=== PATIENT | female | born 1990 | race Caucasian/White ===

== ENCOUNTER 2016-10-25 12:23 | Emergency (ER) | payer BC ==
[2016-10-25] MEDS ORDERED: NS 1,000 ML IV ONE (12:44)
--- NOTE | 2016-10-25 12:48 | EDPHY ---
H & P Stated Complaint: Abdominal pain, diarrhea, nausea Source: Patient Exam Limitations: No limitations - Personal History LMP (Females 10-55): 15-21 Days Ago Current Tetanus/Diphtheria Vaccine: Unsure Current Tetanus Diphtheria and Acellular Pertussis (TDAP): Unsure - Medical/Surgical History Hx Asthma: Yes Hx Chronic Respiratory Disease: No Hx Diabetes: No Hx Cardiac Disease: No Hx Renal Disease: No Hx Cirrhosis: No Hx Alcoholism: No Hx HIV/AIDS: No Hx Splenectomy or Spleen Trauma: No Other PMH: asthma, allergic rx - Social History Smoking Status: Never smoked Time Seen by Provider: 10/25/16 12:35 HPI/ROS: CHIEF COMPLAINT: Abdominal pain, nausea, loose stool HISTORY OF PRESENT ILLNESS: The patient has a history of endometriosis status post laparoscopic surgery x2. She has been on a medically supervised weight loss program including injectable HCG shots this week. She presents to the ED today after she has developed lower abdominal cramping for the past 3 days. She denies fever or vomiting. She does report an episode of loose stool over the past 2 days. The patient denies vaginal discharge or bleeding. The patient reports his symptoms are moderate in nature. REVIEW OF SYSTEMS: A comprehensive 10 point review of systems is otherwise negative aside from elements mentioned in the history of present illness. (Sadi Taylor) - Physical Exam Exam: General Appearance: Alert, no distress Eyes: Pupils equal and round no pallor or injection ENT, Mouth: Mucous membranes moist Respiratory: There are no retractions, lungs are clear to auscultation Cardiovascular: Regular rate and rhythm Gastrointestinal: Minimal tenderness to palpation noted in the right lower quadrant, right mid and left lower quadrant Neurological: A&O, normal motor function, normal sensory exam, normal cranial nerves Skin: Warm and dry, no rashes Musculoskeletal: Neck is supple nontender Extremities: symmetrical, full range of motion (Sadi Taylor) Constitutional: Initial Vital Signs Temperature (C) 36.8 C 10/25/16 12:27 Heart Rate 60 10/25/16 12:27 Respiratory Rate 18 10/25/16 12:27 Blood Pressure 122/67 H 10/25/16 12:27 O2 Sat (%) 97 10/25/16 12:27 O2 Delivery Mode Room Air Allergies/Adverse Reactions: sulfamethoxazole [From ] Allergy (Verified 10/25/16 12:30) trimethoprim [From Septra] Allergy (Verified 10/25/16 12:30) Home Medications: Medication Instructions Recorded Pamprin Multi-Symptom Tab 10/25/16 Medical Decision Making - Diagnostics Imaging Results: Imaging Impressions Abdomen Ultrasound 10/25/16 12:44 Impression: Trace of free fluid in the right lower quadrant, otherwise, there are no secondary findings to support a clinical diagnosis of acute appendicitis. Results called and discussed with Jonatan Lozano M.D. on 10/25/2016 at 14:32 Pelvic/Renal Ultrasound 10/25/16 12:44 Impression: 1. No evidence for ovarian torsion. 2. Hypoechoic avascular structure in the left ovary could represent a hemorrhagic cyst or possibly an endometrioma. 3. Moderate amount of free fluid is seen throughout the pelvis. Results called and discussed with Jonatan Lozano M.D. on October 25, 2016 at 1432 hours. US free fluid in pelvis, no torsion, no fibroid; Reza at 1434. Appendix not visualized but no secondary signs of appendicitis. (Jonatan Lozano) ED Course/Re-evaluation: The patient's test is positive as expected secondary to her current HCG therapy for weight loss. The patient tells me she did have 2 negative home tests prior to starting this therapy. The patient was reexamined by myself at 2:00 p.m.. She is in no acute distress and she remains with a benign abdominal examination. Plan will be for pelvic US to evaluate for torsion. Patient plans to stop HCG therapy and will repeat test later in the week. We discussed the very unlikely possibility of ectopic and the need to verify the test becomes negative after stopping HCG. The patient will be turned over to Dr. Lozano pending US. If no acute CLINICAL REVIEW SPECIALIST issue identified, DC home with plan for NSAID's, stop HCG treatment and recheck test this week. Return precautions given to patient. (Sadi Taylor) Differential Diagnosis: Differential diagnosis considered includes ovarian cyst, appendicitis, urinary tract infection, endometriosis (Sadi Taylor) Other Provider: Care assumed from Claudia at 1400. Results discussed with the patient at 1435; discussed high-dose oral nonsteroidals, she will stop her HCG shots. Although her test is positive it is likely this is due to her injections, see Dr. Taylor note for details. Per Dr. Taylor plan to discharge the patient if ultrasound does not show high likelihood of acute surgical problem. Ectopic considered but thought to be unlikely. Will return if pain gets worse or she develops dizziness or fainting. (Jonatan Lozano) - Data Points Laboratory Results: Laboratory Results 10/25/16 12:55 10/25/16 12:55 10/25/16 10/25/16 10/25/16 12:55 12:55 12:55 WBC 9.75 10^3/uL H 10^3/uL (3.80-9.50) RBC 4.84 10^6/uL 10^6/uL (4.18-5.33) Hgb 14.8 g/dL g/dL (12.6-16.3) Hct 44.8 % % (38.0-47.0) MCV 92.6 fL fL (81.5-99.8) MCH 30.6 pg pg (27.9-34.1) MCHC 33.0 g/dL g/dL (32.4-36.7) RDW 11.7 % % (11.5-15.2) Plt Count 367 10^3/uL 10^3/uL (150-400) MPV 10.1 fL fL (8.7-11.7) Neut % (Auto) 68.3 % % (39.3-74.2) Lymph % (Auto) 19.0 % % (15.0-45.0) Bureau % (Auto) 8.4 % % (4.5-13.0) Eos % (Auto) 3.2 % % (0.6-7.6) Baso % (Auto) 0.7 % % (0.3-1.7) Nucleat RBC Rel Count 0.0 % % (0.0-0.2) Absolute Neuts (auto) 6.66 10^3/uL H 10^3/uL (1.70-6.50) Absolute Lymphs (auto) 1.85 10^3/uL 10^3/uL (1.00-3.00) Absolute Monos (auto) 0.82 10^3/uL H 10^3/uL (0.30-0.80) Absolute Eos (auto) 0.31 10^3/uL 10^3/uL (0.03-0.40) Absolute Basos (auto) 0.07 10^3/uL 10^3/uL (0.02-0.10) Absolute Nucleated RBC 0.00 10^3/uL 10^3/uL (0-0.01) Immature Gran % 0.4 % % (0.0-1.1) Immature Gran # 0.04 10^3/uL 10^3/uL (0.00-0.10) Sodium 140 mEq/L mEq/L (134-144) Potassium 4.2 mEq/L mEq/L (3.5-5.2) Chloride 108 mEq/L mEq/L (97-110) Carbon Dioxide 20 mEq/l L mEq/l (22-31) Anion Gap 12 mEq/L mEq/L (8-16) BUN 19 mg/dL mg/dL (7-23) Creatinine 0.8 mg/dL mg/dL (0.6-1.0) Estimated GFR > 60 Glucose 92 mg/dL mg/dL (70-100) Calcium 9.4 mg/dL mg/dL (8.5-10.4) Beta HCG, Qual POSITIVE Medications Given: Discontinued Medications Sodium Chloride (Ns) 1,000 mls @ 0 mls/hr IV ONCE ONE PRN Reason: Wide Open Stop: 10/25/16 12:45 Last Admin: 10/25/16 12:57 Dose: 1,000 mls Ibuprofen (Motrin) 600 mg PO EDNOW ONE Stop: 10/25/16 14:40 Last Admin: 10/25/16 14:45 Dose: 600 mg Departure - Departure Disposition: Home, Routine, Self-Care Clinical Impression: Abdominal pain Qualifiers: Abdominal location: unspecified location Qualified Code(s): R10.9 - Unspecified abdominal pain Condition: Good Instructions: Acute Abdominal Pain (ED) Additional Instructions: 1. Please stop HCG injections as these are likely causing your abdominal pain. 2. Please return to the ED for severe pain, fever or other concerns. 3. Sometimes we are unable to diagnose an obvious cause of abdominal pain in the Emergency Department. Based upon our evaluation today, I believe you discomfort is secondary to the HCG injections. Because more serious conditions can be difficult to diagnose early in the course of their presentation, we ask that you return to the Emergency Department in 8-12 hours for a recheck if you are still having pain. This is necessary to exclude the development of a more serious condition such as appendicitis or other intra-abdominal emergency. In the event your pain markedly increases before that time or you develop intractable vomiting or fever return to the Emergency Department immediately. 4. Take Ibuprofen or Motrin 600 mg by mouth three times a day. 5. Please have your primary care provider repeat your test to verify it has again return to a negative status following discontinuation of your HCG injections. Referrals: Estela Wiley PA [Primary Care Provider] - As per Instructions
[2016-10-25 13:01] LABS: % IMMATURE GRANULYOCYTES 0.4 % (0.0-1.1); ABSOLUTE IMMATURE GRANULOCYTES 0.04 10^3/uL (0.00-0.10); ADD DIFF? NO; ADD MORPH? NO; ADD SCAN? NO; ATYPICAL LYMPHOCYTE FLAG 10 (0-99); FRAGMENT RBC FLAG 0 (0-99); HEMATOCRIT 44.8 % (38.0-47.0); HEMOGLOBIN 14.8 g/dL (12.6-16.3); LEFT SHIFT FLG 0 (0-99); LIPEMIA HEMOLYSIS FLAG 80 (0-99); MEAN CELL HEMOGLOBIN 30.6 pg (27.9-34.1); MEAN CELL VOLUME 92.6 fL (81.5-99.8); MEAN PLATELET VOLUME 10.1 fL (8.7-11.7); PLATELET CLUMPS FLAG 0 (0-99); PLATELET COUNT 367 10^3/uL (150-400); RED BLOOD CELL COUNT 4.84 10^6/uL (4.18-5.33); RED CELL DISTRIBUTION WIDTH 11.7 % (11.5-15.2)
[2016-10-25 13:20] LABS: ANION GAP 12 mEq/L (8-16); CALCIUM 9.4 mg/dL (8.5-10.4); CARBON DIOXIDE 20 mEq/l (22-31); CHLORIDE 108 mEq/L (97-110); CREATININE 0.8 mg/dL (0.6-1.0); GLOMERULAR FILTRATION RATE > 60; GLUCOSE 92 mg/dL (70-100); POTASSIUM 4.2 mEq/L (3.5-5.2); SODIUM 140 mEq/L (134-144)
[2016-10-25 13:58] VITALS: RESP 20; TEMP 98.6
[2016-10-25] MEDS ORDERED: IBUPROFEN 600 MG TAB PO ONE (14:39)
[2016-10-25 14:49] VITALS: BP 108/82; PULSE 81; O2SAT 97
== END 2016-10-25 14:53 | disposition home or self-care (01) ==
DX: R10.31 Right lower quadrant pain (principal); J45.909 Unspecified asthma, uncomplicated